=== PATIENT | female | born 1960 | race Caucasian/White ===

== ENCOUNTER 2018-07-20 09:12 | Emergency (ER) | payer OTHER ==
[~2018-07-20] VITALS: Ht 160 cm; Wt 92.8 kg
[2018-07-20 09:47] VITALS: BP 197/91; PULSE 86; RESP 18; Ht 160 cm; Wt 92.8 kg
--- NOTE | 2018-07-20 12:02 | ERD ---
ER Documentation Chief Complaint Chief Complaint C/O LEFT ANKLE, HEEL PAIN FOR 2 WEEKS, AMBULATES WITH LIMP; NO INJURY HPI 58-year-old female presents for 2 weeks of intermittent left foot pain. 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 Patient states that her symptoms are worse while she is at work or after her shift at work. Patient states that her pain is relieved with rest and better in the morning. Patient states she has only tried Tylenol with no relief of symptoms. She describes the pain as a dull, aching pain on the volar aspect of her left heel as well as over the lateral left portion of the dorsal aspect of the left foot. Patient denies any falls or trauma. She denies any past medical history of arthritis in the foot or having this problem previously. PMH: Patient states she has been told by her primary care doctor that she has had hypertension in the past however she is not currently taking any medications for hypertension. ROS All systems reviewed and are negative except as per history of present illness. FmHx Family History: No diabetes Physical Exam Vitals Vital Signs Date Temp Pulse Resp B/P (MAP) Pulse Ox O2 O2 Flow FiO2 Time Delivery Rate 07/20/18 98.0 86 18 197/91 98 09:47 (126) Physical Exam GENERAL: Well-developed, well-nourished female. Appears in no acute distress. HEAD: Normocephalic, atraumatic. EYES: Pupils are equally reactive bilaterally. EOMs grossly intact. No conjunctival erythema. NECK: Supple. No meningismus. Normal range of motion of the neck. LUNG: Clear to auscultation bilaterally. No rhonchi, wheezing, rales or coarse breath sounds. HEART: Regular rate and rhythm. No murmurs, rubs or gallops. EXTREMITIES: Equal pulses bilaterally. No peripheral clubbing, cyanosis or edema. No unilateral leg swelling. NEUROLOGIC: Alert and oriented. Moving all four extremities without any difficulty. Normal speech. Steady gait. SKIN: Normal color. Warm and dry. No rashes or lesions. LLE: No deformity, erythema, ecchymosis or swelling. Skin intact. Full ROM of ankle. No crepitus. Tender to palpation over the plantar surface of the foot. Nontender to palpation of the fifth metatarsal, midfoot, lateral or medial ankle. Sensation intact to light touch. Neurovascularly intact. (Able to plantarflex, dorsiflex, kaushal foot, invert foot, raise big toe.) 2+ DP and DT pulses. Procedures/MDM ED COURSE: The patient was stable throughout ED course. I kept the patient and/or family informed of laboratory and diagnostic imaging results throughout the ED course. DIAGNOSTIC IMAGING: Read by radiologist. DIAGNOSTIC IMAGING REPORT Patient: CLARA HURST : 1960 Age: 58 Sex: F MR #: [id number] DOS: 07/20/18 1124 Ordering MD: MIRIAM OQUENDO PA-C Location: [facility] Room/Bed: PROCEDURE: Left foot series CLINICAL INDICATION: Pain TECHNIQUE: AP, lateral and oblique images were obtained . COMPARISON: None FINDINGS: No evidence acute fractures or dislocations. Bony mineralization is normal. No focal bony blastic or lytic lesions. No evidence of erosions. Soft tissues are unremarkable. IMPRESSION: No evidence acute fractures dislocations or erosions. RPTAT:AAJJ Physician Zackary Date Time Electronically viewed and signed by Physician Zackary on 07/20/2018 12:17 BM/ CC: MIRIAM OQUENDO PA-C [id number] PROCEDURES: SPLINT APPLICATION: The patient was verbally consented at bedside prior to splint application. Patient was explained the risks, benefits and alternatives to this procedure. The patient was neurovascularly intact prior to and status post application of the splint. The patient tolerated the procedure well with no complications. Splint type: DANIEL wrap Extremity: Left foot Indication: Left foot sprain MEDICAL DECISION MAKING: This is a 58-year-old female presents the ER for concerns of intermittent left foot pain times 2 weeks. Vital signs were reviewed. Patient was afebrile. X-ray imaging was negative for fracture dislocation. Patient was advised that symptoms are likely related to foot sprain. R ICE therapy was advised. Patient was given Daniel wrap for comfort measures. Low suspicion for ankle dislocation, tibia fracture, fibula fracture, ankle fracture, tarsal bone fracture, metatarsal fracture, phalangeal fracture, stress fracture, lisfranc injury, gout, septic joint, reactive arthritis, psoriatic arthritis, DVT, compartment syndrome, plantar fasciitis, diabetic neuropathy or pes planus. At this time, unable to rule out any tendon and ligament injuries. Patient advised to follow- up with client account specialist PRESCRIPTIONS: Naproxen DISCHARGE: At this time, patient is stable for discharge and outpatient management. RICE therapy and ROM exercises were advised to avoid stiffness. I have instructed the patient to follow-up with his/her primary care physician in 1-2 days. I have discussed with the patient the possibility of needing to see an client account specialist for further workup and imaging if the pain persists. I have instructed the patient to promptly return to the ER for any new or worsening symptoms including increased pain, swelling, redness, warmth or fever. The patient and/or family expressed understanding of and agreement with this plan. All questions were answered. Home care instructions were provided. Disclaimer: Inadvertent spelling and grammatical errors are likely due to EHR/d ictation software use and do not reflect on the overall quality of patient care. Also, please note that the electronic time recorded on this note does not necessarily reflect the actual time of the patient encounter. Departure Diagnosis: Primary Impression: Foot pain, left Condition: Stable Patient Instructions: Sprain Foot Additional Instructions: Call your primary care doctor TOMORROW for an appointment during the next 1-2 days.See the doctor sooner or return here if your condition worsens before your appointment time. MIRIAM OQUENDO PA-C Jul 20, 2018 12:02
[2018-07-20] MEDS ORDERED: NAPR-985 PO (12:25)
== END 2018-07-20 13:03 | disposition home or self-care (01) ==
LOC: FTE 09:12
DX: M79.672 Pain in left foot (principal); I10 Essential (primary) hypertension